=== PATIENT | female | born 1990 | race Hispanic/Latino ===

== ENCOUNTER → 2024-10-19 10:54 | Outpatient (REF) | payer OTHER, SELFPAY ==
[2024-10-19 12:27] LABS: ALT (SGPT) 13 U/L (0-35); AST (SGOT) 21 U/L (14-36); Albumin 4.4 g/dl (3.5-5.0); Alkaline Phosphatase 57 U/L (38-126); Blood Urea Nitrogen 9 mg/dl (7-17); Calcium 9.1 mg/dl (8.4-10.2); Carbon Dioxide 25 mmol/L (22-30); Chloride 106 mmol/L (98-107); Glucose 106 mg/dl (70-99); HDL Cholesterol 43 mg/dl; LDL Cholesterol, Calculated 112 mg/dl; Magnesium 2.1 mg/dl (1.6-2.3); Potassium 4.7 mmol/L (3.5-5.1); Sodium 139 mmol/L (135-145); Total Protein 7.2 g/dl (6.3-8.2); Very Low Density Lipoprotein 27 mg/dl (0-30); eGFR > 60.00
[2024-10-19 12:38] LABS: Hematocrit 33.9 % (37.0-47.0); Hemoglobin 9.8 g/dL (12.0-16.0); Mean Corp Hgb Conc. 28.9 g/dL (33.0-37.0); Mean Corpuscular Volume 67.7 fL (81.0-99.0); Nucleated Red Blood Cells % 0 %; Platelet Count 263 10^3/uL (130-400); Red Cell Dist. Width 18.6 % (11.5-14.5)
[2024-10-19 12:42] LABS: Vitamin D, 25-OH*** 22.4 ng/mL (30-80)
[2024-10-19 13:56] LABS: Glycohemoglobin (HgbA1c) 5.9 % (4.0-5.6)
== END ==
LOC: CLINIC 10:54
DX: R14.0 Abdominal distension (gaseous) (principal); Z00.00 Encounter for general adult medical examination without abnormal findings
CPT/HCPCS: 36415; 80053; 80061; 82306; 83013; 83036; 83735; 84443; 85025

== ENCOUNTER → 2025-01-25 08:59 | Outpatient (REF) | payer OTHER, SELFPAY ==
[2025-01-25 09:36] LABS: Hematocrit 38.1 % (37.0-47.0); Hemoglobin 11.4 g/dL (12.0-16.0); Mean Corp Hgb Conc. 29.9 g/dL (33.0-37.0); Mean Corpuscular Volume 72.2 fL (81.0-99.0); Platelet Count 219 10^3/uL (130-400); Red Cell Dist. Width 23.6 % (11.5-14.5)
[2025-01-25 10:06] LABS: Iron 36 ug/dl (37-170)
[2025-01-25 10:16] LABS: Total Iron Binding Capacity 429 ug/dl (265-497)
[2025-01-25 10:44] LABS: Ferritin 8.7 ng/ml (6.24-137)
[2025-01-26 23:00] LABS: Transferrin 328 mg/dL (200-360)
== END ==
LOC: CLINIC 08:59
PROVIDERS: ATTENDING PHYSICIAN Student in an Organized Health Care Education/Training Program
DX: D64.9 Anemia, unspecified (principal)
CPT/HCPCS: 36415; 82728; 83540; 83550; 84466; 85027